=== PATIENT | male | born 1970 | race Caucasian/White ===

== ENCOUNTER 2016-08-14 10:52 | Emergency (ER) | payer OTHER ==
[2016-08-14 10:57] VITALS: BP 150/106; TEMP 97.6; BMI 34.9
--- NOTE | 2016-08-14 11:56 | ED.PDOC ---
General ED Provider: Dr. ALBERT NELSON Chief Complaint: Extremity Pain/Injury Stated Complaint: left shoulder pain Time Seen by Physician: 11:00 Mode of Arrival: Walk-In Information Source: Patient Exam Limitations: No limitations Primary Care Provider: SAIMA RAYGOZA Nursing and Triage Documentation Reviewed and Agree: Yes Musculoskeletal Complaint Exam - Shoulder Pain Complaint/Exam Mechanism of Injury: Reports: No known trauma Onset/Duration: chronic Symptoms Are: Still present Timing: Constant Initial Severity: Moderate Current Severity: Moderate Character: Reports: Throbbing, Spasmodic, Stiffness Alleviating: Reports: None Aggravating: Reports: Movement, Lifting, Flexion, Extension, Internal rotation, External rotation, Abduction Associated Signs and Symptoms: Denies: Swelling, Redness, Bruising, Fever, Weakness, Numbness, Tingling Related History: Reports: Similar episode Non-Orthopedic Risk Factors: Reports: None DVT Risk Factors: Reports: None Septic Arthritis Risk Factors: Reports: None Related Surgical History: Reports: None Limited Range of Motion: Present: Abduction, Adduction, Flexion, Extension, Internal rotation, External rotation, Rotator cuff muscles, Rotator cuff insertion Differential Diagnoses: Rotator Cuff Injury Review of Systems - Review Of Systems Constitutional: Reports: No symptoms Eyes: Reports: No symptoms Ears, Nose, Mouth, Throat: Reports: No symptoms Respiratory: Reports: No symptoms Cardiac: Reports: No symptoms GI: Reports: No symptoms : Reports: No symptoms Musculoskeletal: Reports: Joint pain (left shoulder ) Skin: Reports: No symptoms Neurological: Reports: No symptoms Endocrine: Reports: No symptoms Hematologic/Lymphatic: Reports: No symptoms All Other Systems: Reviewed and Negative Past Medical History - Past Medical History Previously Healthy: Yes Endocrine: Reports: None Cardiovascular: Reports: None Respiratory: Reports: None Hematological: Reports: None Gastrointestinal: Reports: None Genitourinary: Reports: None Neuro/Psych: Reports: None Musculoskeletal: Reports: None Cancer: Reports: None - Surgical History General Surgical History: Reports: Unknown - Family History Family History: Reports: Unknown - Social History Smoking Status: Current every day smoker Hx Substance Use: No Alcohol Screening: None Physical Exam - Physical Exam Appearance: Well-appearing, No pain distress, Well-nourished Eyes: CATHY, EOMI, Conjunctiva clear ENT: Ears normal, Nose normal, Oropharynx normal Respiratory: Airway patent, Breath sounds clear, Breath sounds equal, Respirations nonlabored Cardiovascular: RRR, Pulses normal, No rub, No murmur GI/: Soft, Nontender, No masses, Bowel sounds normal, No Organomegaly Musculoskeletal: Limited ROM Skin: Warm, Dry, Normal color Neurological: Sensation intact, Motor intact, Reflexes intact, Cranial nerves intact, Alert, Oriented Psychiatric: Affect appropriate, Mood appropriate Critical Care Note - Critical Care Note Total Time (mins): 0 Course - Course Orders, Labs, Meds: Orders Category Date Time Status SHOULDER, LEFT MIN 2V Stat RADS 08/14/16 11:51 Ordered Vital Signs: Temp Pulse Resp BP Pulse Ox 08/14/16 10:53 97.6 F 84 20 150/106 H 95 Departure - Departure Time of Disposition: 13:00 Disposition: HOME SELF-CARE Discharge Problem: Rotator cuff arthropathy Qualifiers: Laterality: left Qualifier Code: (M12.812) Other specific arthropathies, not elsewhere classified, left shoulder Instructions: Rotator Cuff Injury (ED) Condition: Good Pt referred to PMD for follow-up: No Additional Instructions: Please call your Family Physician as soon as possible to schedule a follow-up appointment.MUST SEE YOUR MD FOR MRI OF SHOULDER Allergies/Adverse Reactions: Allergies No Known Allergies Allergy (Unverified 08/14/16 10:56) Home Medications: Ambulatory Orders Etanercept [Enbrel] 25 mg SQ WEEKLY 08/14/16 Folic Acid 1 mg PO DAILY 08/14/16 Lisinopril/Hydrochlorothiazide [Zestoretic 20-12.5 mg Tablet] 1 each PO DAILY Methotrexate Sodium [Methotrexate] 3 tab PO WEEKLY 08/14/16
--- NOTE | 2016-08-14 12:30 | DI ---
EXAM: LEFT SHOULDER HISTORY: Shoulder pain FINDINGS: Left shoulder three-view. Normal bone density. No fracture or dislocation is identified. Glenohumeral joint appears normal. There is mild acromioclavicular joint osteoarthritis. IMPRESSION: Mild acromioclavicular joint osteoarthritis.
== END 2016-08-14 13:21 | disposition home or self-care (01) ==
LOC: ED 10:52
DX: M12.812 Other specific arthropathies, not elsewhere classified, left shoulder (principal); F17.210 Nicotine dependence, cigarettes, uncomplicated
CPT/HCPCS: 99283

== ENCOUNTER 2016-10-04 16:11 | Outpatient (CLI) | payer OTHER ==
[2016-10-04 16:28] LABS: BASOPHILS % (AUTO) 0.5 % (0.0-3.0); EOSINOPHILS # (AUTO) 0.2 K/ul (0.0-0.7); EOSINOPHILS % (AUTO) 3.1 % (0.0-7.0); HEMATOCRIT 41.5 % (42.0-52.0); IMMATURE GRANULOCYTE % (AUTO) 0.1 % (0.0-5.0); LYMPHOCYTES # (AUTO) 2.1 K/uL (0.60-3.4); LYMPHOCYTES % (AUTO) 28.8 (10.0-50.0); MEAN CORPUSCULAR HEMOGLOBIN 27.3 pg (27.0-31.0); MEAN CORPUSCULAR HGB CONC 33.7 (31.8-35.4); MEAN CORPUSCULAR VOLUME 81.1 fl (80.0-94.0); MONOCYTES # (AUTO) 0.6 K/uL (0.4-2.0); MONOCYTES % (AUTO) 7.5 (0-10); NEUTROPHILS # (AUTO) 4.4 K/ul (2.0-6.9); PLATELET COUNT 250 10^3/uL (140-440); RED BLOOD COUNT 5.12 10^6/ul (4.70-6.10); WHITE BLOOD COUNT 7.37 K/ul (4.2-10.2)
[2016-10-04 17:06] LABS: ALBUMIN 3.9 g/dL (3.4-5.0); ALBUMIN/GLOBULIN RATIO 1.22; ANION GAP 12.6; BILIRUBIN,TOTAL 0.32 mg/dL (0.00-1.20); BUN/CREATININE RATIO 15.05; CALCIUM 9.5 mg/dL (8.2-10.2); CHOL/HDL RATIO 4.6 (4.5-6.4); CREATININE 0.93 mg/dL (0.60-1.10); POTASSIUM 3.6 mmol/L (3.5-5.1); TOTAL PROTEIN 7.1 g/dL (6.4-8.2)
== END 2016-10-04 16:12 | disposition home or self-care (01) ==
LOC: LAB 16:11
PROVIDERS: ATTEND Internal Medicine
DX: I10 Essential (primary) hypertension (principal); J44.9 Chronic obstructive pulmonary disease, unspecified; E78.5 Hyperlipidemia, unspecified; M06.9 Rheumatoid arthritis, unspecified
CPT/HCPCS: 36415; 80053; 80061; 83036; 84443; 85025

== ENCOUNTER 2017-02-16 09:24 | Outpatient (CLI) ==
[2017-02-16 09:54] LABS: BASOPHILS % (AUTO) 0.3 % (0.0-3.0); EOSINOPHILS # (AUTO) 0.2 K/ul (0.0-0.7); EOSINOPHILS % (AUTO) 3.1 % (0.0-7.0); HEMATOCRIT 42.9 % (42.0-52.0); HEMOGLOBIN 14.4 g/dl (14.0-18.0); IMMATURE GRANULOCYTE % (AUTO) 0.3 % (0.0-5.0); LYMPHOCYTES # (AUTO) 2.1 K/uL (0.60-3.4); MEAN CORPUSCULAR HEMOGLOBIN 27.2 pg (27.0-31.0); MEAN CORPUSCULAR HGB CONC 33.6 (31.8-35.4); MEAN CORPUSCULAR VOLUME 80.9 fl (80.0-94.0); MONOCYTES # (AUTO) 0.7 K/uL (0.4-2.0); MONOCYTES % (AUTO) 9.2 (0-10); NEUTROPHILS # (AUTO) 4.7 K/ul (2.0-6.9); NEUTROPHILS % (AUTO) 60.1; PLATELET COUNT 241 10^3/uL (140-440); WHITE BLOOD COUNT 7.74 K/ul (4.2-10.2)
[2017-02-16 10:32] LABS: ALBUMIN 3.9 g/dL (3.4-5.0); ALBUMIN/GLOBULIN RATIO 1.05; ANION GAP 14.9; BILIRUBIN,TOTAL 0.41 mg/dL (0.00-1.20); BUN/CREATININE RATIO 20.73; CHOL/HDL RATIO 5.3 (4.5-6.4); CREATININE 0.82 mg/dL (0.60-1.10); POTASSIUM 3.9 mmol/L (3.5-5.1); TOTAL PROTEIN 7.6 g/dL (6.4-8.2)
== END 2017-02-16 09:25 | disposition home or self-care (01) ==
LOC: LAB 09:24
PROVIDERS: ATTEND Internal Medicine
DX: I10 Essential (primary) hypertension (principal); I51.7 Cardiomegaly; J44.9 Chronic obstructive pulmonary disease, unspecified; N52.9 Male erectile dysfunction, unspecified; E29.1 Testicular hypofunction; G47.00 Insomnia, unspecified; Z79.899 Other long term (current) drug therapy; Z12.5 Encounter for screening for malignant neoplasm of prostate
CPT/HCPCS: 36415; 80053; 80061; 83036; 84443; 85025

== ENCOUNTER 2017-09-24 12:33 | Outpatient (CLI) ==
--- NOTE | 2017-09-24 14:36 | DI ---
EXAM: Two views of the chest. History: Short of breath and cough. Findings: Low lung volumes accentuate heart size but appears enlarged. Bronchial wall thickening. N o consolidated pneumonia. No pleural fluid and no pneumothorax. No acute osseous abnormalities. Impression: 1. Cardiomegaly with no evidence for pulmonary edema. 2. Bronchial wall thickening
== END 2017-09-24 12:34 | disposition home or self-care (01) ==
LOC: RAD 12:33
PROVIDERS: ATTEND Internal Medicine
DX: R06.02 Shortness of breath (principal); R05 Cough

== ENCOUNTER 2017-09-26 09:31 | Observation (INO) ==
[2017-09-26] MEDS ORDERED: VISTARIL INJ IM PRN (09:47)
[2017-09-26] MEDS ORDERED: TYLENOL PO PRN (09:47)
[2017-09-26] MEDS ORDERED: NITROSTAT SL PRN (09:47)
[2017-09-26] MEDS ORDERED: ATROPINE SULFATE PFS IVP PRN (09:47)
[2017-09-26] MEDS ORDERED: MORPHINE 4 MG/ML VIAL IVP PRN (09:47)
[2017-09-26 10:20] VITALS: BMI 35.0
[2017-09-26] MEDS: COZAAR PO SCH (10:31)
[2017-09-26] MEDS: HYDROCHLOROTHIAZIDE PO SCH (10:32)
[2017-09-26] MEDS: COREG PO SCH ×2 (10:32→17:26)
[2017-09-26] MEDS: FOLIC ACID PO SCH (10:32)
[2017-09-26] MEDS: ZITHROMAX PO SCH (10:32)
[2017-09-26] MEDS: DEXTROSE 5%-1/2NS IV SOLUTION 1,000 ML IV SCH ×2 (10:42→22:33)
[2017-09-26] MEDS: ROCEPHIN 1 GM in SODIUM CHLORIDE 50 ML IV SCH (10:42)
[2017-09-26] MEDS: TORADOL IVP SCH ×3 (10:49→21:35)
[2017-09-26] MEDS: SOLU-CORTEF 250 MG IVP SCH ×3 (10:49→21:35)
[2017-09-26] MEDS: TUSSIONEX PO SCH ×2 (10:49→21:34)
[2017-09-26] MEDS: XOPENEX 1.25 MG NEB SCH ×3 (11:08→23:00)
--- NOTE | 2017-09-26 11:34 | DI ---
EXAM: PA and lateral views of the chest HISTORY: Cough with chest pain COMPARISON: Chest x-ray 09/24/2017 FINDINGS: The cardiomediastinal silhouette is unchanged and mildly enlarged. There is no pneumothor ax or pleural effusion. There is no consolidation, nodule or mass. There is unchanged questionable central airway thickening. The osseous structures are unremarkable. IMPRESSION: 1. Central airway thickening may represent reactive airways changes versus bronchitis. 2. Unchanged enlarged cardiomediastinal silhouette.
[2017-09-26] MEDS: NICODERM 21 MG TD SCH (16:56)
[2017-09-26] MEDS ORDERED: DESYREL PO SCH (21:00)
[2017-09-27] MEDS: TORADOL IVP SCH ×3 (05:25→21:03)
[2017-09-27] MEDS: SOLU-CORTEF 250 MG IVP SCH ×3 (05:26→21:03)
[2017-09-27] MEDS: XOPENEX 1.25 MG NEB SCH ×4 (05:49→22:46)
[2017-09-27] MEDS ORDERED: DESYREL PO SCH (08:15)
[2017-09-27] MEDS: COZAAR PO SCH (08:42)
[2017-09-27] MEDS: COREG PO SCH ×2 (08:42→16:57)
[2017-09-27] MEDS: HYDROCHLOROTHIAZIDE PO SCH (08:42)
[2017-09-27] MEDS: ZITHROMAX PO SCH (08:43)
[2017-09-27] MEDS: FOLIC ACID PO SCH (08:43)
[2017-09-27] MEDS: XANAX PO PRN (08:43)
[2017-09-27] MEDS: ROCEPHIN 1 GM in SODIUM CHLORIDE 50 ML IV SCH (08:44)
[2017-09-27] MEDS: TUSSIONEX PO SCH ×2 (08:44→21:03)
[2017-09-27] MEDS: NICODERM 21 MG TD SCH (08:44)
--- NOTE | 2017-09-27 09:43 | PCM.PROG ---
Attending Provider: ATTENDING PROVIDER: Dr. SAIMA RAYGOZA This patient is seen with Angelica Serna, Nurse Practitioner. DATE OF SERVICE: 09/27/17 SUBJECTIVE: This 47 year old WHITE/ M was hospitalized 09/26/17. The patient is lying in bed alert. He states he feels anxious. He has a good appetite. He did not sleep very well. He is still coughing, had fever yesterday. REVIEW OF SYSTEMS: CONSTITUTIONAL: No night sweats. No fatigue, malaise, lethargy. No fever or chills. HEENT: Eyes: No visual changes. No eye pain. No eye discharge. ENT: No runny nose. No epistaxis. No sinus pain. No odynophagia. No congestion. RESPIRATORY: Cough. No congestion. No hemoptysis. No shortness of breath. CARDIOVASCULAR: No angina symptoms. No CHF symptoms. No atypical chest pain for CAD. No palpitations. No orthopnea.. GASTROINTESTINAL: No abdominal pain. No nausea or vomiting. No diarrhea or constipation. No hematemesis. No hematochezia. GENITOURINARY: No urgency. No frequency. No dysuria. No hematuria. No obstructive symptoms. No discharge. No pain. No significant abnormal bleeding. MUSCULOSKELETAL: No musculoskeletal pain; no joint swelling. NEUROLOGICAL: Awake, alert, oriented to time, place and person. No headache. No neck pain. No syncope. No seizures. No dizziness. PSYCHIATRIC: Not anxious. No depression. No suicidal thoughts. No homicidal thoughts. SKIN: No rash. No lesions. No wounds. ENDOCRINE: No unexplained weight loss. No weight gain. HEMATOLOGIC/LYMPHATIC: No anemia. No purpura. No petechiae. No prolonged or excessive bleeding. No palpable lymph nodes. PHYSICAL EXAMINATION: GENERAL: The patient is awake, alert and oriented, sitting in bed in no distress. VITAL SIGNS: Temperature 98.5 F, Pulse 52, Respiratory Rate 16, BP 136/82, Pulse Ox 97% HEENT: Head normocephalic, atraumatic. Eyes: Extraocular muscles are intact. Pupils are equal, round and reactive to light and accommodation. Ears: No lesions. Nose appeared normal. Throat: No exudate or erythema. NECK: Supple. No JVD, no carotid bruit. No lymphadenopathy or thyromegaly. LUNGS: Rhonchi on the right with diminished breath sounds. Percussion note normal. Chest symmetrical. HEART: S1, S2, no S3. No murmurs. No cyanosis or clubbing. No ascites. Pulses: Dorsalis pedis and posterior tibial pulses +1 to +2 both sides. ABDOMEN: Soft. Non-tender. Bowel sounds active. No CVA tenderness. No mass felt. EXTREMITIES: No edema. Full range of motion of all extremities, equal. NEUROLOGIC: No focal deficit. Cranial nerves II through XII are grossly intact. No headache, no double vision or headache. SKIN: Not dry. Intact. Turgor-normal. LYMPHATIC: No palpable lymph nodes/no lymphedema. MUSCULOSKELETAL: Normal joints with no swelling. Muscle tone is normal. LAB REVIEW: 09/27/17 04:30 09/27/17 04:30 09/27/17 04:30: Sodium 138, Potassium 4.3, Chloride 105, Carbon Dioxide 23, Anion Gap 14.3, BUN 16, Creatinine 0.83, Estimated GFR (MDRD) 99.00, BUN/ Creatinine Ratio 19.27, Glucose 131 H, Calcium 9.1, Total Bilirubin 0.5, AST 22 , ALT 44, Alkaline Phosphatase 62, Total Protein 6.4, Albumin 3.3 L, Globulin 3.1, Albumin/Globulin Ratio 1.06 09/27/17 04:30: WBC 10.70 H, RBC 4.81, Hgb 13.4 L, Hct 40.5 L, MCV 84.2, MCH 27.9, MCHC 33.1, RDW Coeff of Martha 15.0 H, Plt Count 237, Immature Gran % (Auto) 0.3, Neut % (Auto) 78.1, Lymph % (Auto) 16.3, [place] % (Auto) 5.2, Eos % (Auto) 0.0, Baso % (Auto) 0.1, Immature Gran # (Auto) 0.0, Neut # (Auto) 8.4 H, Lymph # (Auto) 1.7, [place] # (Auto) 0.6, Eos # (Auto) 0.0, Baso # (Auto) 0.0 09/26/17 17:48: Total Creatine Kinase 81, Troponin I 0.0160 09/26/17 17:00: Urine Color Yellow, Urine Clarity Clear, Urine pH 5.5, Ur Specific Brea 1.025, Urine Protein Negative, Urine Glucose (UA) Negative, Urine Ketones Negative, Urine Blood Negative, Urine Nitrite Negative, Urine Bilirubin Negative, Urine Urobilinogen 0.2, Ur Leukocyte Esterase Negative 09/26/17 10:30: Influ A Molecular Assay Negative by naat, Influ B Molecular Assay Negative by naat 09/26/17 10:25: Sodium 138, Potassium 3.5, Chloride 103, Carbon Dioxide 24, Anion Gap 14.5, BUN 14, Creatinine 0.82, Estimated GFR (MDRD) 101.00, BUN/ Creatinine Ratio 17.07, Glucose 89, Calcium 9.3, Total Bilirubin 0.5, AST 16, ALT 32, Alkaline Phosphatase 71, Total Creatine Kinase 95, Troponin I < 0.0100, Total Protein 7.0, Albumin 3.7, Globulin 3.3, Albumin/Globulin Ratio 1.12, TSH 6.808 H, Free T4 0.79 09/26/17 10:25: WBC 13.67 H, RBC 5.13, Hgb 14.6, Hct 43.1, MCV 84.0, MCH 28.5, MCHC 33.9, RDW Coeff of Martha 14.9 H, Plt Count 258, Immature Gran % (Auto) 0.3, Neut % (Auto) 68.7, Lymph % (Auto) 22.9, [place] % (Auto) 7.5, Eos % (Auto) 0.5, Baso % (Auto) 0.1, Immature Gran # (Auto) 0.0, Neut # (Auto) 9.4 H, Lymph # ( Auto) 3.1, [place] # (Auto) 1.0, Eos # (Auto) 0.1, Baso # (Auto) 0.0 09/26/17 09:47: Puncture Site Rbrach, O2 Saturation 95.0, ABG pH 7.451 H, ABG pCO2 40.9, ABG pO2 74.0 L, ABG HCO3 28.5 H, ABG Total CO2 30 H, ABG Base Excess 5 H, FiO2 % 21.0 ASSESSMENT: 1. Acute bronchitis 2. Flu symptoms 3. Anxiety PLAN: 1. Echocardiogram 2. Trazodone 100 mg at night 3. Xanax 0.25 mg daily p.r.n. Plan and coordination of the patient's care discussed in the presence of Staff Rn and nurse. CONDITION: Stable SCRIBED BY: SARAH TAYLOR Academic Computing Director scribed while in presence of service performed by Dr. Raygoza/Angelica Serna APRN on 09/27/17 (0800)
[2017-09-27] MEDS: DEXTROSE 5%-1/2NS IV SOLUTION 1,000 ML IV SCH ×2 (11:06→23:18)
[2017-09-28] MEDS: XOPENEX 1.25 MG NEB SCH ×2 (04:38→11:13)
[2017-09-28] MEDS: TORADOL IVP SCH ×2 (05:09→13:25)
[2017-09-28] MEDS: SOLU-CORTEF 250 MG IVP SCH ×2 (05:09→13:24)
[2017-09-28] MEDS ORDERED: SYNTHROID PO SCH (09:00)
[2017-09-28] MEDS: ROCEPHIN 1 GM in SODIUM CHLORIDE 50 ML IV SCH (09:04)
[2017-09-28] MEDS: COREG PO SCH (09:05)
[2017-09-28] MEDS: COZAAR PO SCH (09:05)
[2017-09-28] MEDS: ZITHROMAX PO SCH (09:05)
[2017-09-28] MEDS: XANAX PO PRN (09:05)
[2017-09-28] MEDS: FOLIC ACID PO SCH (09:05)
[2017-09-28] MEDS: HYDROCHLOROTHIAZIDE PO SCH (09:06)
[2017-09-28] MEDS: TUSSIONEX PO SCH (09:12)
[2017-09-28] MEDS: NICODERM 21 MG TD SCH (09:12)
--- NOTE | 2017-09-28 11:13 | HP ---
DATE OF SERVICE: 09/26/17 REASON FOR HOSPITALIZATION/HISTORY OF PRESENT ILLNESS: Treated for acute bronchitis/Flu syndrome 09/24/17. No improvement. Still fever/ chills, no nausea. No symptoms of CHF/CAD. Fatigue/tired/Dizziness. Appetite not good. PAST MEDICAL HISTORY: Hypertension Arthritis PAST SURGICAL HISTORY: Bilateral knee Lymph nodes (groin) REVIEW OF SYSTEMS: CONSTITUTIONAL: Fever, Fatigue. HEENT: No sinus drainage, no sore throat. RESPIRATORY: Cough: Dry, no congestion. CARDIOVASCULAR: Atypical chest pain for coronary artery disease right sided with cough. No angina, CHF symptoms, palpitations. Shortness of breath. GASTROINTESTINAL: No melena or abdominal pain. No GERD. GENITOURINARY: No hematuria, no prostatism, no polyuria. COOKER SODA: No blackout, Dizziness, no headache, no double vision. MUSCULOSKELETAL: Osteoarthritis pain, no joint swelling. ENDOCRINE: No weight loss, no weight gain. SKIN: Not dry, no rash. PSYCHIATRIC: Anxious, no depression, no suicidal thoughts, no homicidal thoughts. SOCIAL HISTORY: Marital Status: . Alcohol Usage: No. Tobacco Usage: Yes. FAMILY HISTORY: Father Alzheimer Mother cancer Brother 0 Sister 2 MEDICATIONS: Methotrexate 3 a week Embrel Folic acid Trazodone 50mg HS Cialis 5mg daily Hyzaar 100-12.5mg daily Keflex 500 three times a day 10 days-on hold Prednisone 20mg twice a day for 5 days- on hold Phenergan with codeine- on hold ALLERGIES: No known allergies PHYSICAL EXAMINATION: V/S: Pulse 83, blood pressure 168/118, temperature 99.7, Oxygen saturation 98%. GENERAL APPEARANCE: Oriented times three. HEENT: Normal. NECK: No JVP, no bruits. RESPIRATORY: Lungs are clear with decreased breath sounds. CARDIOVASCULAR: S1, S2, no S3, no murmurs. No cyanosis, clubbing. No ascites. GI/ABDOMEN: No tenderness. Bowel sounds are active. EXTREMITIES: edema, pulses +1, equal. COOKER SODA: Deep tendon reflexes, sensory, motor and gait all normal. RECTAL/PELVIC/PROSTATE: 02/05(0.4). SKIN: Dry. ASSESSMENT: 1. Flu syndrome 2. Acute bronchitis 3. Dehydration 4. Hypertension (severe) Urgency 5. Pleuritic chest pain (Rt sided) 6. Hypertension/LVH 7. Rheumatoid arthritis, Dr. Rajan 8. Smoking/COPD 9. Left hip replacement- Dr. Quinn 10.ED 11.Prostatism 12.Hypogonadism 13.Insomnia 14.Umbilical hernia 15.Acute bronchitis PLAN: 1. Admit 2. Routine Telemetry orders 3. Toradol 30mg IV now and Q 8 hours 4. Diet regular 5. Telemetry x 48 hours 6. Rapid Flu A and B 7. Solu-Cortef 125mg IV now and 8 hours 8. Rocephin 1 gram IV 24 hours 9. Zithromax 500mg PO daily x3 day 10.1000cc D5 1/2 normal saline 12 hours 11.Daily CBC and CMP 12.ABG 13.Xopenex (NEBS) Q 6 hours 14.Losartan 100-12.5 PO daily 15.Sputum for culture and sensitivity 16.Blood culture x 2 17.T4 TSH 18.Tussionex one teaspoon PO twice a day daily. 19.Coreg 6.25mg PO twice a day TIME SPENT: More than 70 minutes. MTDD
--- NOTE | 2017-09-28 11:20 | PCM.PROG ---
Attending Provider: ATTENDING PROVIDER: Dr. SAIMA RAYGOZA This patient is seen with Angelica Serna, Nurse Practitioner. DATE OF SERVICE: 09/28/17 SUBJECTIVE: This 47 year old WHITE/ M was hospitalized 09/26/17. The patient is sitting on the side of bed, alert. He states he is ready to go home. He is encouraged to be up and about. Cough improved. No fever. REVIEW OF SYSTEMS: CONSTITUTIONAL: No night sweats. No fatigue, malaise, lethargy. No fever or chills. HEENT: Eyes: No visual changes. No eye pain. No eye discharge. ENT: No runny nose. No epistaxis. No sinus pain. No odynophagia. No congestion. RESPIRATORY: Cough and congestion. No hemoptysis. No shortness of breath. CARDIOVASCULAR: No angina symptoms. No CHF symptoms. No atypical chest pain for CAD. No palpitations. No orthopnea.. GASTROINTESTINAL: No abdominal pain. No nausea or vomiting. No diarrhea or constipation. No hematemesis. No hematochezia. GENITOURINARY: No urgency. No frequency. No dysuria. No hematuria. No obstructive symptoms. No discharge. No pain. No significant abnormal bleeding. MUSCULOSKELETAL: No musculoskeletal pain; no joint swelling. NEUROLOGICAL: Awake, alert, oriented to time, place and person. No headache. No neck pain. No syncope. No seizures. No dizziness. PSYCHIATRIC: Not anxious. No depression. No suicidal thoughts. No homicidal thoughts. SKIN: No rash. No lesions. No wounds. ENDOCRINE: No unexplained weight loss. No weight gain. HEMATOLOGIC/LYMPHATIC: No anemia. No purpura. No petechiae. No prolonged or excessive bleeding. No palpable lymph nodes. PHYSICAL EXAMINATION: GENERAL: The patient is awake, alert and oriented, sitting in bed in no distress. VITAL SIGNS: Temperature 98.1 F, Pulse 68, Respiratory Rate 18, BP 158/90, Pulse Ox 98% HEENT: Head normocephalic, atraumatic. Eyes: Extraocular muscles are intact. Pupils are equal, round and reactive to light and accommodation. Ears: No lesions. Nose appeared normal. Throat: No exudate or erythema. NECK: Supple. No JVD, no carotid bruit. No lymphadenopathy or thyromegaly. LUNGS: Diminished breath sounds bilaterally. Clear to auscultation. Percussion note normal. Chest symmetrical. HEART: S1, S2, no S3. No murmurs. No cyanosis or clubbing. No ascites. Pulses: Dorsalis pedis and posterior tibial pulses +1 to +2 both sides. ABDOMEN: Soft. Non-tender. Bowel sounds active. No CVA tenderness. No mass felt. EXTREMITIES: No edema. Full range of motion of all extremities, equal. NEUROLOGIC: No focal deficit. Cranial nerves II through XII are grossly intact. No headache, no double vision or headache. SKIN: Not dry. Intact. Turgor-normal. LYMPHATIC: No palpable lymph nodes/no lymphedema. MUSCULOSKELETAL: Normal joints with no swelling. Muscle tone is normal. LAB REVIEW: 09/28/17 05:35 09/28/17 05:35 09/28/17 05:35: Sodium 139, Potassium 3.7, Chloride 106, Carbon Dioxide 23, Anion Gap 13.7, BUN 16, Creatinine 0.77, Estimated GFR (MDRD) 108.00, BUN/ Creatinine Ratio 20.77, Glucose 116 H, Calcium 9.0, Total Bilirubin 0.4, AST 14 L, ALT 37, Alkaline Phosphatase 62, Total Protein 6.4, Albumin 3.2 L, Globulin 3.2, Albumin/Globulin Ratio 1.00 09/28/17 05:35: WBC 12.90 H, RBC 4.88, Hgb 13.5 L, Hct 40.6 L, MCV 83.2, MCH 27.7, MCHC 33.3, RDW Coeff of Martha 14.6, Plt Count 256, Immature Gran % (Auto) 0.5, Neut % (Auto) 71.7, Lymph % (Auto) 18.4, [place] % (Auto) 9.2, Eos % (Auto) 0.1, Baso % (Auto) 0.1, Immature Gran # (Auto) 0.1, Neut # (Auto) 9.2 H, Lymph # (Auto) 2.4, [place] # (Auto) 1.2, Eos # (Auto) 0.0, Baso # (Auto) 0.0 ASSESSMENT: 1. Acute bronchitis 2. Flu symptoms 3. Anxiety 4. Smoker 5. Cardiomegaly per chest x-ray 6. Hypothyroidism PLAN: 1. D/C home 2. Echocardiogram today 3. ProAir Hfa three to four times a day 4. Rest at home 5. Finish Keflex 6. Prednisone 20 mg b.i.d. times 5 days, then daily for 5 days 7. Tussionex one tsp b.i.d. 8. Synthroid 50 mg daily Plan and coordination of the patient's care discussed in the presence of Independent Driver and nurse. EDUCATION: Information provided regarding blood pressure control, diet, exercise and smoking cessation. CONDITION: STABLE SCRIBED BY: Vega BAPTISTE scribed while in presence of service performed by Dr. Raygoza/Angelica Serna APRN on 09/28/17 (9900)
[2017-09-28 13:53] VITALS: BP 134/85; TEMP 98.3
--- NOTE | 2017-09-28 14:59 | CM.DICTOOL ---
ADMISSION: 09/26/17 09:31 FINAL DIAGNOSIS ACUTE BRONCHITIS PNEUMONITIS FLU-LIKE SYMPTOMS DEHYDRATION HYPERTENSION CARDIOMEGALY BY CXR, 09/26/17 HYPOTHYROIDISM (TSH 6.808, 09/26/17) DYSLIPIDEMIA UMBILICAL HERNIA ED LEFT SHOULDER OSTEOARTHRITIS DEPRESSION/ANXIETY LEFT HIP ARTHROPLASTY LEFT KNEE ARTHROPLASTY EVERYDAY SMOKER LAST VITALS Temp Pulse Resp BP Pulse Ox 98 F 65 18 144/86 H 95 09/28/17 10:00 09/28/17 10:00 09/28/17 10:00 09/28/17 10:00 09/28/17 10:00 ACTIVE HOME MEDICATIONS Etanercept (Enbrel) 25 mg SQ WEEKLY Folic Acid (Folic Acid) 1 mg PO DAILY [facility] Last Admin: 09/28/17 09:05 Dose: 1 mg Losartan Potassium (Hyzaar)/Hydrochlorothiazide 100-12.5 mg PO DAILY [facility] Last Admin: 09/28/17 09:05 Dose: 100-12.5 mg Methotrexate Sodium 3 tabs PO WEEKLY Trazodone HCl (Desyrel) 50 mg PO BEDTIME [facility] Last Admin: 09/27/17 21:03 Dose: 100 mg ALLERGIES No Known Allergies Allergy (Unverified 08/14/16 10:56) NEW PRESCRIPTIONS: CONTINUE THE PRESCRIPTION MEDICATIONS PROVIDED TO YOU JUST PRIOR TO THIS HOSPITALIZATION: *PHENERGAN WITH CODEINE 5-10 ML, TAKE 5-10 ML BY MOUTH EVERY 6 HOURS NEEDED FOR COUGHING *KEFLEX 500 MG, TAKE ONE TABLET BY MOUTH THREE TIMES DAILY UNTIL PRESCRIPTION IS COMPLETED *PREDNISONE 20 MG, TAKE ONE TABLET BY MOUTH TWICE DAILY WITH FOOD FOR 5 DAYS, THEN ONE TABLET BY MOUTH DAILY WITH FOOD FOR 5 DAYS, THEN STOP NEW MEDICATIONS *PROAIR INHALER, TAKE 2 PUFFS FOUR TIMES DAILY *SYNTHROID 50 MCG, TAKE ONE TABLET BY MOUTH ON AN EMPTY STOMACH BEFORE BREAKFAST DAILY *COREG (CARVEDILOL) 6.25 MG, TAKE ONE TABLET BY MOUTH TWICE DAILY WITH MEALS *NICOTINE PATCH STEP ONE WEEKS 1-4 (21 MG PATCH) STEP TWO WEEKS 5-6 (14 MG PATCH) STEP THREE WEEKS 7-8 (7 MG PATCH) APPLY ONE PATCH ON CLEAN DRY SKIN TOPICALLY EVERY 24 HOURS. USE A DIFFERENT SITE DAILY. HOLD THE PATCH IN PLACE FOR 8-10 SECONDS. WASH YOUR HANDS FOLLOWING APPLICATION AND REMOVAL OF THE PATCHES. DISPOSE OF USED PATCHES IN A SAFE PLACE. DO NOT USE NICOTINE PATCHES LONGER THAN 8 WEEKS. SMOKING: CURRENT EVERYDAY SMOKER THE PATIENT HAS RECEIVED INFORMATION/TEACHING REGARDING SMOKING CESSATION AND ADDED RISKS TO HIS CARDIOVASCULAR/CARDIOPULMONARY HEALTH WITH NONCOMPLIANCE. HE HAS VERBALIZED HIS INTENT TO STOP SMOKING AND HAS BEEN USING THE NICOTINE PATCH DURING THIS STAY. HE IS AGREEABLE TO COMPLY WITH THREE STEP NICOTINE PATCH USE TO AIDE IN COMPLETE SMOKING CESSATION DURING AN 8 WEEK PERIOD. WE WILL OFFER ENCOURAGEMENT AND MONITORING OF HIS PROGRESS DURING OFFICE VISITS. DISEASE SPECIFIC EDUCATION: PNEUMONITIS DEHYDRATION BRONCHITIS HYPERTENSION HOME MEDICATIONS NEW PRESCRIPTIONS FOLLOW UP DIET, EXERCISE LAB REVIEW: 09/28/17 05:35 09/28/17 05:35 09/28/17 05:35: Sodium 139, Potassium 3.7, Chloride 106, Carbon Dioxide 23, Anion Gap 13.7, BUN 16, Creatinine 0.77, Estimated GFR (MDRD) 108.00, BUN/ Creatinine Ratio 20.77, Glucose 116 H, Calcium 9.0, Total Bilirubin 0.4, AST 14 L, ALT 37, Alkaline Phosphatase 62, Total Protein 6.4, Albumin 3.2 L, Globulin 3.2, Albumin/Globulin Ratio 1.00 09/28/17 05:35: WBC 12.90 H, RBC 4.88, Hgb 13.5 L, Hct 40.6 L, MCV 83.2, MCH 27.7, MCHC 33.3, RDW Coeff of Martha 14.6, Plt Count 256, Immature Gran % (Auto) 0.5, Neut % (Auto) 71.7, Lymph % (Auto) 18.4, [place] % (Auto) 9.2, Eos % (Auto) 0.1, Baso % (Auto) 0.1, Immature Gran # (Auto) 0.1, Neut # (Auto) 9.2 H, Lymph # (Auto) 2.4, [place] # (Auto) 1.2, Eos # (Auto) 0.0, Baso # (Auto) 0.0 PLAN: DISCHARGE HOME TODAY RETURN TO SEE DR. RAYGOZA IN HIS OFFICE ON 10/05/17 AT 1 P.M. RESUME YOUR HOME MEDICATIONS PER LIST PROVIDED BY THE NURSING STAFF CONTINUE THE PRESCRIPTION MEDICATIONS PROVIDED TO YOU JUST PRIOR TO THIS HOSPITALIZATION: *PHENERGAN WITH CODEINE 5-10 ML, TAKE 5-10 ML BY MOUTH EVERY 6 HOURS NEEDED FOR COUGHING *KEFLEX 500 MG, TAKE ONE TABLET BY MOUTH THREE TIMES DAILY UNTIL PRESCRIPTION IS COMPLETED *PREDNISONE 20 MG, TAKE ONE TABLET BY MOUTH TWICE DAILY WITH FOOD FOR 5 DAYS, THEN ONE TABLET BY MOUTH DAILY WITH FOOD FOR 5 DAYS, THEN STOP NEW MEDICATIONS *PROAIR INHALER, TAKE 2 PUFFS FOUR TIMES DAILY *SYNTHROID 50 MCG, TAKE ONE TABLET BY MOUTH ON AN EMPTY STOMACH BEFORE BREAKFAST DAILY *COREG (CARVEDILOL) 6.25 MG, TAKE ONE TABLET BY MOUTH TWICE DAILY WITH MEALS *NICOTINE PATCH STEP ONE WEEKS 1-4 (21 MG PATCH) STEP TWO WEEKS 5-6 (14 MG PATCH) STEP THREE WEEKS 7-8 (7 MG PATCH) APPLY ONE PATCH ON CLEAN DRY SKIN TOPICALLY EVERY 24 HOURS. USE A DIFFERENT SITE DAILY. HOLD THE PATCH IN PLACE FOR 8-10 SECONDS. WASH YOUR HANDS FOLLOWING APPLICATION AND REMOVAL OF THE PATCHES. DISPOSE OF USED PATCHES IN A SAFE PLACE. DO NOT USE NICOTINE PATCHES LONGER THAN 8 WEEKS. ACTIVITY GET PLENTY OF REST AT HOME. GRADUALLY INCREASE YOUR ACTIVITY LEVEL ACCORDING TO YOUR TOLERATION STOP SMOKING DIET HEALTHY HEART SUMMARY THE PATIENT IS ALERT AND ORIENTED X3. HE CURRENTLY RESIDES AT HOME WITH HIS SPOUSE AND CHILDREN. HE IS INDEPENDENT WITH ADL'S AND DOES NOT REQUIRE ANY DME , HOME HEALTH OR HOMEMAKING SERVICES. HE WORKS OUTSIDE THE HOME AND IS ABLE TO PROVIDE HIS OWN TRANSPORTATION. HE DESIRES TO RETURN HOME AT DISCHARGE. SKIN TURGOR IS INTACT AND WITHOUT DECUBITUS ULCERS. HYDRATION AND NUTRITIONAL STATUS ARE VERY GOOD. THE PATIENT IS AFEBRILE AND PAIN FREE AT DISCHARGE. HE IS AWARE AND AGREEABLE FOR TODAY'S DISCHARGE PLANS. CURRENT CODE STATUS FULL CODE HALINA JON APRN SAIMA RAYGOZA M.D.
--- NOTE | 2017-10-01 09:43 | ECHO2D ---
Date of Exam: 09/28/17 Ordering Physician: DR. SAIMA RAYGOZA Room #: 119 Reason for Echo: CARDIOMEGALY, COUGH, SOB M-Mode Normal Adult Results LV Dimensions Normal Adult Results AoV Opening excursions >1.6 >1.6 LVEDD-base- 3.5-5.8 5.1 Ao root dimensions 2.0-3.7 3.9 LVESD-base- 3.1-4.6 L. Atrium dimensions 1.9-3.8 4.2 Post. Wall thickness 0.8-1.1 1.3 IV septum (thickness) 0.7-1.2 1.4 Post. Wall excursion 0.72-1.3 NORMAL Septal motion NORMAL Systolic motion R. Ventricular cavity 1.5-2.0 NORMAL LVEF 60% 59% Paradoxical septal wall motion NORMAL 2-D : 2-D M Mode Echocardiogram was performed using apical four chamber and left parasternal long and short axis views. Mitral, tricuspid and aortic valves appear to be normal. Contractility of the left ventricle seems to be normal, so is the cavity size. Enlarged Left atrial cavity. Aortic root appears to be normal. There is no pericardial effusion. There is no thrombus noted in the left ventricular or left aortic cavity. No mitral valve prolapse noted. M-MODE: MV: NORMAL AV: NORMAL TV: NORMAL PV: CHAMBER SIZE: ENLARGED LEFT ATRIAL CAVITY WALL MOTION: NORMAL PERICARDIUM: NORMAL INTERPRETATION: 1. LEFT VENTRICULAR HYPERTROPHY WITH ENLARGED LEFT ATRIAL CAVITY 2. NORMAL LEFT VENTRICULAR CONTRACTILITY 3. NORMAL VALVES MTDD
--- NOTE | 2017-10-02 10:33 | PN ---
DATE OF SERVICE: 09/27/17 SUBJECTIVE: The patient was hospitalized with severe acute bronchitis, severe hypertension and hypertensive urgency. The patient's blood pressure is under control. He is feeling better. PHYSICAL EXAMINATION: HEENT: Head normocephalic, atraumatic. Eyes: Extraocular muscles are intact. Pupils are equal, round and reactive to light and accommodation. Ears: No lesions. Nose appeared normal. Throat: No exudate or erythema. NECK: Supple. No JVD, no carotid bruit. No lymphadenopathy or thyromegaly. LUNGS: Decreased breath sounds with mild wheeze. Percussion note normal. Chest symmetrical. HEART: S1, S2, no S3. No murmurs. No cyanosis or clubbing. No ascites. Pulses: Dorsalis pedis and posterior tibial pulses +1 to +2 both sides. ABDOMEN: Soft. Nontender. Bowel sounds active. No CVA tenderness. No mass felt. EXTREMITIES: No edema. Full range of motion of all extremities, equal. NEUROLOGIC: No focal deficit. Cranial nerves II through XII are grossly intact. No headache, no double vision or headache. SKIN: Not dry. Intact. Turgor - normal. LYMPHATIC: No palpable lymph nodes/no lymphedema. MUSCULOSKELETAL: Normal joints with no swelling. Muscle tone is normal. ASSESSMENT: 1. The patient's bronchitis, pneumonitis, dehydration and hypertension seems to be getting under control. 2. The patient has cardiomegaly with LVH noted on EKG. PLAN: 1. Continue steroids, antibiotics, nebs treatment. 2. Will do echocardiogram to evaluate LV function. 3. The patient is explained about coronary artery disease and the risk factors and how many he has and very likely he has atherosclerosis. Advised further evaluation when he gets well with stress test, etc. He has declined at the present time. TIME SPENT: More than 30 minutes. CONDITION: Stable. Plan and coordination of the patient's care discussed in the presence of nurse. YAMEL
--- NOTE | 2017-10-02 11:31 | PN ---
09/26/17: Level 5 09/27/17: Intermediate 09/28/17: D as in discharge MTDD
--- NOTE | 2017-10-15 11:17 | DS ---
DATE OF SERVICE: 09/28/17 FINAL DIAGNOSIS: 1. ACUTE BRONCHITIS 2. PNEUMONITIS 3. FLU-LIKE SYMPTOMS 4. DEHYDRATION 5. HYPERTENSION 6. CARDIOMEGALY BY CXR, 09/26/17 7. HYPOTHYROIDISM (TSH 6.808, 09/26/17) 8. DYSLIPIDEMIA 9. UMBILICAL HERNIA 10. ERECTILE DYSFUNCTION 11. LEFT SHOULDER OSTEOARTHRITIS 12. DEPRESSION/ANXIETY 13. LEFT HIP ARTHROPLASTY 14. LEFT KNEE ARTHROPLASTY 15. EVERYDAY SMOKER DISCHARGE INSTRUCTIONS: Followup appointment scheduled on 10/05/17 at 1 p.m. in his office. MEDICATIONS AT DISCHARGE: Enbrel 25 mg SQ weekly Folic Acid 1 mg p.o. daily JENNY Hyzaar/Hydrochlorothiazide 100-12.5 mg p.o. daily JENNY Methotrexate Sodium 3 tabs p.o. weekly Desyrel 50 mg p.o. bedtime JENNY CONTINUE THE MEDICATIONS PROVIDED TO YOU JUST PRIOR TO THIS HOSPITALIZATION: Phenergan with Codeine 5-10 mL take 5-10 mL by mouth every 6 hours as needed for coughing Keflex 500 mg take one tablet by mouth three times daily until prescription is completed Prednisone 20 mg take one tablet twice daily with food for 5 days then one tablet by mouth daily with food for 5 days then stop NEW PRESCRIPTIONS: ProAir inhaler take two puffs four times daily Synthroid 50 mcg take one tablet by mouth on an empty stomach before breakfast daily Coreg 6.25 mg take one tablet by mouth twice daily with meals Nicotine patch - Step One weeks 1-4 (21 mg Patch; Step Two weeks 5-6 (14 mg patch) DIET INSTRUCTIONS: Healthy Heart ACTIVITY: Get plenty of rest at home. Gradually increase your activity level according to your toleration SMOKING: Current everyday smoker The patient has received information/teaching regarding cessation and added risks to his cardiovascular/cardiopulmonary health with noncompliance. He has verbalized his intent to stop smoking and has been using the nicotine patch during this stay. He is agreeable to comply with three step nicotine patch use to aide in complete smoking cessation during an 8 week period. We will offer encouragement and monitoring of his progress during office visits. DISEASE SPECIFIC EDUCATION: Pneumonitis Dehydration Bronchitis Hypertension Home medication New prescriptions Followup Diet, exercise HOSPITAL COURSE: This is a 47-year-old male who was seen in the office on Sunday with cough, congestion and low grade fever. He was started on Keflex and Prednisone, presented on Sunday with worsening symptoms. He had higher fever, stated he was weak, short of breath. He was subsequently admitted for flu symptoms and dehydration. Kidney function was slightly elevated. He was placed on Normal Saline at 75 cc/hr along with Rocephin 1 gm IV daily and Zithromax 500 mg p.o. daily for 3 days. Chest x-ray revealed that he did have significant edema and thickening of the bronchials. consistent with bronchitis. Rapid Flu was negative. Over the course of the past 48 hours he has significantly improved. Yesterday, he was still experiencing some wheezing. This morning his breath sounds are diminished but clear and significantly improved. It was found his TSH was slightly elevated at 6.8. This was a new finding for him. We will start him on Synthroid 50 mcg daily. Today, after IV fluids for two days, his kidney function is normal with BUN 16, creatinine 0.77, white count 12.9, hemoglobin 13.5, hematocrit 40.6, platelets 256, sodium 139, potassium 3.7. He will finish his third and final dose of Zithromax today. He has been on Solu-Cortef 125 mg IV q.8hr along with Xopenex neb treatments q.6hr and Tussionex as needed for the cough. We will send him home with ProAir inhaler that he is to use three times a day scheduled and he can wean himself off as his cough starts to improve. He is to resume the Keflex that he had previously 500 mg p.o. t.i.d. for the next 7 days and then we will give him a Prednisone 20 mg b.i.d. for 5 days then 20 mg daily for 5 days for a total of 10 days. Information has been provided to him regarding smoking cessation. He has been on a nicotine patch here and has not smoked however he shows no interest in stopping smoking. Dr. Quinn did perform an echo today prior to discharge as chest x-ray revealed cardiomegaly. He also has a history of hypertension. We will follow up with him in the office next week. TIME SPENT: More than 60 minutes. YAMEL
== END 2017-09-28 16:00 | disposition home or self-care (01) ==
LOC: MEDSURG B 09:31 → INTOOBSV 09:31
PROVIDERS: ADMIT Internal Medicine; ATTEND Internal Medicine
DX: J20.9 Acute bronchitis, unspecified (principal); J18.9 Pneumonia, unspecified organism; R09.89 Other specified symptoms and signs involving the circulatory and respiratory systems; R50.9 Fever, unspecified; E86.0 Dehydration; I16.0 Hypertensive urgency; I10 Essential (primary) hypertension; I51.7 Cardiomegaly; F17.210 Nicotine dependence, cigarettes, uncomplicated; F41.8 Other specified anxiety disorders; E03.9 Hypothyroidism, unspecified; E78.5 Hyperlipidemia, unspecified; K42.9 Umbilical hernia without obstruction or gangrene; N52.9 Male erectile dysfunction, unspecified; M19.012 Primary osteoarthritis, left shoulder; Z96.642 Presence of left artificial hip joint; Z96.652 Presence of left artificial knee joint
CPT/HCPCS: 36415; 80053; 81001; 82550; 82803; 84439; 84443; 84484; 85025; 87040; 87070; 87077; 87186; 87502; 93005; 93010; 94640; 96361; 96365; 96366; 96375; 96376

== ENCOUNTER 2018-07-22 11:46 | Outpatient (CLI) | END 2018-07-22 11:47 | disposition home or self-care (01) | LOC: LAB 11:46 | DX: I10 Essential (primary) hypertension (principal); J44.9 Chronic obstructive pulmonary disease, unspecified; M06.9 Rheumatoid arthritis, unspecified; Z12.5 Encounter for screening for malignant neoplasm of prostate; Z79.899 Other long term (current) drug therapy | CPT/HCPCS: 36415; 80053; 80061; 84439; 84443; 85025 ==

== ENCOUNTER 2018-09-02 17:15 | Outpatient (CLI) | END 2018-09-02 17:16 | disposition home or self-care (01) | LOC: LAB 17:15 | DX: M06.9 Rheumatoid arthritis, unspecified (principal) | CPT/HCPCS: 36415; 80053; 85025 ==

== ENCOUNTER 2018-11-29 15:28 | Outpatient (CLI) | END 2018-11-29 15:29 | disposition home or self-care (01) | LOC: LAB 15:28 | PROVIDERS: ATTEND Internal Medicine Rheumatology | DX: M06.9 Rheumatoid arthritis, unspecified (principal); Z79.899 Other long term (current) drug therapy | CPT/HCPCS: 36415; 80053; 85025 ==

== ENCOUNTER 2018-12-11 09:17 | Inpatient (IN) ==
[2018-12-11 10:04] VITALS: BMI 36.6
[2018-12-11] MEDS ORDERED: XOPENEX 0.63 MG NEB PRN (10:56)
[2018-12-11] MEDS: ZITHROMAX PO SCH (11:53)
[2018-12-11] MEDS: SOLU-CORTEF 250 MG IVP SCH ×3 (11:55→21:33)
[2018-12-11] MEDS: SODIUM CHLORIDE 1,000 ML IV SCH (11:55)
[2018-12-11] MEDS: ROCEPHIN 1 GM in SODIUM CHLORIDE 50 ML IV SCH (11:55)
[2018-12-11] MEDS ORDERED: TYLENOL PO STA (12:16)
[2018-12-11] MEDS ORDERED: SYNTHROID PO SCH (12:20)
--- NOTE | 2018-12-11 13:34 | DI ---
EXAM: Two views of the chest. History: Short of breath comparison: Chest radiograph 09/26/2017 Findings: Heart is mildly enlarged. Mild right basilar infiltrate. No appreciable pleural fluid an d no pneumothorax. No acute osseous abnormalities. Impression: 1. Mild right basilar infiltrate. 2. Mild cardiomegaly
[2018-12-11] MEDS: HYDROCHLOROTHIAZIDE PO SCH (13:47)
[2018-12-11] MEDS: COZAAR PO SCH (13:47)
[2018-12-11] MEDS ORDERED: XOPENEX 0.63 MG NEB SCH (14:00)
[2018-12-11] MEDS ORDERED: COREG PO SCH ×3 (14:30→17:30)
[2018-12-11] MEDS: XOPENEX 1.25 MG NEB SCH ×2 (14:39→23:55)
[2018-12-11] MEDS: PROAIR HFA IH SCH ×3 (15:17→21:37)
[2018-12-11] MEDS: SYNTHROID PO SCH (15:17)
[2018-12-11] MEDS: FOLIC ACID PO SCH (15:18)
[2018-12-11] MEDS: K-DUR PO SCH (15:18)
[2018-12-11] MEDS: AZULFIDINE PO SCH (15:18)
[2018-12-11] MEDS: NICODERM 14 MG TD SCH (15:19)
[2018-12-11] MEDS ORDERED: TYLENOL PO PRN (15:56)
[2018-12-11] MEDS ORDERED: NITROSTAT SL PRN (15:56)
[2018-12-11] MEDS ORDERED: VISTARIL INJ IM PRN (15:56)
[2018-12-11] MEDS ORDERED: ATROPINE SULFATE PFS IVP PRN (15:56)
[2018-12-11] MEDS: COREG PO SCH (17:31)
[2018-12-11] MEDS ORDERED: NON-FORMULARY MEDICATION (Sertraline Hcl [Zoloft] 100 MG) PO SCH (20:00)
[2018-12-11] MEDS: ATIVAN PO SCH (21:29)
[2018-12-11] MEDS: CYMBALTA PO SCH (21:29)
[2018-12-11] MEDS: PRAVACHOL PO SCH (21:29)
[2018-12-11] MEDS: SEROQUEL PO SCH (21:30)
[2018-12-11] MEDS: ZOLOFT PO SCH (21:30)
[2018-12-11] MEDS: DESYREL PO SCH (21:31)
[2018-12-12] MEDS: XOPENEX 1.25 MG NEB SCH ×3 (04:38→22:00)
[2018-12-12] MEDS: SYNTHROID PO SCH (05:52)
[2018-12-12] MEDS: SOLU-CORTEF 250 MG IVP SCH ×3 (05:52→20:22)
[2018-12-12] MEDS: ROCEPHIN 1 GM in SODIUM CHLORIDE 50 ML IV SCH (08:33)
[2018-12-12] MEDS: PROAIR HFA IH SCH ×4 (08:33→20:21)
[2018-12-12] MEDS: FOLIC ACID PO SCH (08:34)
[2018-12-12] MEDS: COZAAR PO SCH (08:34)
[2018-12-12] MEDS: COREG PO SCH ×2 (08:34→16:32)
[2018-12-12] MEDS: ASPIRIN EC PO SCH (08:34)
[2018-12-12] MEDS: AZULFIDINE PO SCH (08:34)
[2018-12-12] MEDS: K-DUR PO SCH (08:34)
[2018-12-12] MEDS: HYDROCHLOROTHIAZIDE PO SCH (08:34)
[2018-12-12] MEDS: ZITHROMAX PO SCH (08:35)
[2018-12-12] MEDS: PHENERGAN WITH CODEINE 6.25/10 MG/5 ML PO PRN ×2 (08:36→16:32)
[2018-12-12] MEDS ORDERED: RHEUMATREX PO SCH ×2 (09:00)
[2018-12-12] MEDS ORDERED: NON-FORMULARY MEDICATION (Etanercept [Enbrel] 50 MG) SQ SCH ×2 (09:00→21:00)
[2018-12-12] MEDS ORDERED: NON-FORMULARY MEDICATION (Etanercept [Enbrel] 25 MG) SQ SCH (09:00)
--- NOTE | 2018-12-12 09:55 | PCM.PROG ---
Attending Provider: ATTENDING PROVIDER: Dr. SAIMA RAYGOZA This patient is seen with Angelica Serna, Nurse Practitioner. DATE OF SERVICE: 12/12/18 SUBJECTIVE: This 48 year old WHITE/ M was hospitalized 12/11/18. The patient is resting comfortably. He slept well through the night. Chest x-ray showed pneumonia. He has pleuritic pain with cough. He has shortness of breath requiring oxygen via nasal cannula. Eating well. REVIEW OF SYSTEMS: CONSTITUTIONAL: No night sweats. Fatigue. No fever or chills. HEENT: Eyes: No visual changes. No eye pain. No eye discharge. ENT: No runny nose. No epistaxis. No sinus pain. No odynophagia. No congestion. RESPIRATORY: Cough, no congestion. No hemoptysis. No shortness of breath. CARDIOVASCULAR: No angina symptoms. No CHF symptoms. No atypical chest pain for CAD. No palpitations. No orthopnea.. GASTROINTESTINAL: No abdominal pain. No nausea or vomiting. No diarrhea or constipation. No hematemesis. No hematochezia. GENITOURINARY: No urgency. No frequency. No dysuria. No hematuria. No obstructive symptoms. No discharge. No pain. No significant abnormal bleeding. MUSCULOSKELETAL: No musculoskeletal pain; no joint swelling. NEUROLOGICAL: Awake, alert, oriented to time, place and person. No headache. No neck pain. No syncope. No seizures. No dizziness. PSYCHIATRIC: Not anxious. No depression. No suicidal thoughts. No homicidal thoughts. SKIN: No rash. No lesions. No wounds. ENDOCRINE: No unexplained weight loss. No weight gain. HEMATOLOGIC/LYMPHATIC: No anemia. No purpura. No petechiae. No prolonged or excessive bleeding. No palpable lymph nodes. PHYSICAL EXAMINATION: GENERAL: The patient is awake, alert and oriented, lying in bed in no distress. VITAL SIGNS: Temperature 97.6 F, Pulse 48, Respiratory Rate 16, BP 125/76, Pulse Ox 95% HEENT: Head normocephalic, atraumatic. Eyes: Extraocular muscles are intact. Pupils are equal, round and reactive to light and accommodation. Ears: No lesions. Nose appeared normal. Throat: No exudate or erythema. NECK: Supple. No JVD, no carotid bruit. No lymphadenopathy or thyromegaly. LUNGS: Diminished breath sounds. Bilateral rales. Clear to auscultation. Percussion note normal. Chest symmetrical. HEART: S1, S2, no S3. No murmurs. No cyanosis or clubbing. No ascites. Pulses: Dorsalis pedis and posterior tibial pulses +1 to +2 both sides. ABDOMEN: Soft. Non-tender. Bowel sounds active. No CVA tenderness. No mass felt. EXTREMITIES: No edema. Full range of motion of all extremities, equal. NEUROLOGIC: No focal deficit. Cranial nerves II through XII are grossly intact. No headache, no double vision or headache. SKIN: Not dry. Intact. Turgor-normal. LYMPHATIC: No palpable lymph nodes/no lymphedema. MUSCULOSKELETAL: Normal joints with no swelling. Muscle tone is normal. LAB REVIEW: 12/12/18 05:00 12/12/18 05:00 12/12/18 05:00: Sodium 137.2, Potassium 3.84, Chloride 104.1, Carbon Dioxide 23.7, Anion Gap 13.24, BUN 12.2, Creatinine 0.84, Estimated GFR (MDRD) 98.00, BUN/Creatinine Ratio 14.52, Glucose 126.8 H, Calcium 9.09, Total Bilirubin 0.29 , AST 20.4, ALT 24.1, Alkaline Phosphatase 86.9, Total Protein 6.84, Albumin 4.21, Globulin 2.63, Albumin/Globulin Ratio 1.60 12/12/18 05:00: WBC 12.27 H, RBC 4.75, Hgb 13.4 L, Hct 40.8 L, MCV 85.9, MCH 28.2, MCHC 32.8, RDW Coeff of Martha 14.5, Plt Count 266, Immature Gran % (Auto) 0.6, Neut % (Auto) 80.3, Lymph % (Auto) 13.0, [place] % (Auto) 5.8, Eos % (Auto) 0.2, Baso % (Auto) 0.1, Immature Gran # (Auto) 0.1, Neut # (Auto) 9.9 H, Lymph # (Auto) 1.6, [place] # (Auto) 0.7, Eos # (Auto) 0.0, Baso # (Auto) 0.0 12/11/18 17:48: Urine Color Yellow, Urine Clarity Clear, Urine pH 5.5, Ur Specific Pitman <=1.005, Urine Protein Negative, Urine Glucose (UA) Negative, Urine Ketones Negative, Urine Blood Negative, Urine Nitrite Negative, Urine Bilirubin Negative, Urine Urobilinogen 0.2, Ur Leukocyte Esterase Negative 12/11/18 15:49: Puncture Site Rr, O2 Saturation 95.0, ABG pH 7.369, ABG pCO2 38.2, ABG pO2 80.0 L, ABG HCO3 22.1, ABG Total CO2 23, ABG Base Excess -3 L, Vladimir Test +, FiO2 % 21.0 12/11/18 11:37: Free T4 0.98 12/11/18 11:37: Sodium 135.5, Potassium 4.00, Chloride 99.4, Carbon Dioxide 26.0 , Anion Gap 14.10, BUN 10.9, Creatinine 0.84, Estimated GFR (MDRD) 98.00, BUN/ Creatinine Ratio 12.97, Glucose 97.1, Calcium 9.39, Total Bilirubin 0.61, AST 26.9, ALT 28.8, Alkaline Phosphatase 86.9, Total Protein 7.37, Albumin 4.45, Globulin 2.92, Albumin/Globulin Ratio 1.52, TSH 1.690 12/11/18 11:37: WBC 8.59, RBC 4.79, Hgb 13.7 L, Hct 40.8 L, MCV 85.2, MCH 28.6, MCHC 33.6, RDW Coeff of Martha 14.7, Plt Count 233, Immature Gran % (Auto) 0.5, Neut % (Auto) 65.6, Lymph % (Auto) 20.7, [place] % (Auto) 9.8, Eos % (Auto) 3.1, Baso % (Auto) 0.3, Immature Gran # (Auto) 0.0, Neut # (Auto) 5.6, Lymph # (Auto ) 1.8, [place] # (Auto) 0.8, Eos # (Auto) 0.3, Baso # (Auto) 0.0 ASSESSMENT: Please see below. 1. Right basilar pneumonia 2. Shortness of breath 3. Pleuritic pain 4. Rheumatoid arthritis. PLAN: 1. Continue IV antibiotics 2. Discontinue IV fluids 3. Phenergan with codeine 1-2 tsp Q 6 hours. 4. Discontinue Telemetry Plan and coordination of the patient's care discussed in the presence of Business Administration Professor and nurse. SCRIBED BY: GAMAL MEYER Measurement And Sensing Technician scribed while in presence of service performed by Dr. Raygoza/Angelica Serna APRN on 12/12/18 ([id number])
[2018-12-12] MEDS: NICODERM 14 MG TD SCH (12:08)
--- NOTE | 2018-12-12 13:05 | HP ---
DATE OF SERVICE: 12/11/18 HISTORY OF PRESENT ILLNESS: 48-year-old male with complaint of cough, congestion times one week, green sputum, bloody at times. Pain with coughing and deep breathing, nausea. He had a fever last night, shortness of breath and could not walk dog. No signs or symptoms of CHF or CAD. PAST MEDICAL HISTORY: Hypertension LVH Rheumatoid arthritis/generalized arthritis SANDY PAST SURGICAL HISTORY: Bilateral knees Lymph node in groin Left hip replacement Vasectomy REVIEW OF SYSTEMS: CONSTITUTIONAL: Positive for fever and fatigue. HEENT: Positive for sinus drainage, no sore throat. RESPIRATORY: Positive for cough. No hemoptysis. CARDIOVASCULAR: Positive for pleuritic chest pain. Positive for shortness of breath. No angina, CHF symptoms or palpitations. GASTROINTESTINAL: No melena or abdominal pain. No GERD. GENITOURINARY: Prostatism. No hematuria, no polyuria. CRYSTAL FLAT GRINDER: No blackout, no dizziness, no headache, no double vision. MUSCULOSKELETAL: No osteoarthritis pain, no joint swelling. ENDOCRINE: No weight loss, no weight gain. SKIN: Not dry, no rash. PSYCHIATRIC: Not anxious, no depression, no suicidal thoughts, no homicidal thoughts. SOCIAL HISTORY: The patient is ; has five children. He works part-time at [employer]. No drug use history. Smokes 1/2 pack per day for 30 years. No alcohol use. FAMILY HISTORY: Father and mother . No brothers. Two sisters. MEDICATIONS: (HOME) Methotrexate 2.5 mg tablet, 8 tab p.o. weekly Enbrel 50 mg SQ weekly Folic Acid daily 1 mg p.o. daily Hyzaar 100/12.5 mg daily Levothyroxine 75 mcg Coreg 12.5 mg b.i.d. Ativan 0.5 mg one h.s. Zoloft 100 mg daily Pravachol 40 mg daily Trazodone 75 mg p.o. at h.s. Cymbalta 30 mg daily Sulfasalazine 500 mg p.o. daily Carvedilol 12.5 mg p.o. b.i.d. Seroquel 25 mg one tab h.s. Potassium Chloride ER 20 mEq (started one week) ALLERGIES: NKDA PHYSICAL EXAMINATION: V/S: Pulse 70, BP 138/90, temperature 98.2, 02 sat 95%, weight 245.0 lbs, height 5'8", BMI 37.2. GENERAL APPEARANCE: Oriented times three. HEENT: Yellow green sputum. NECK: No JVP, no bruits. RESPIRATORY: Lungs - rales left upper lobe, expiratory wheeze bilaterally. CARDIOVASCULAR: S1, S2, no S3, no murmurs. No cyanosis, clubbing. No ascites. GI/ABDOMEN: No tenderness. Bowel sounds are active. EXTREMITIES: No edema, pulses +1, equal. CRYSTAL FLAT GRINDER: Deep tendon reflexes, sensory, motor and gait all normal. RECTAL/PROSTATE: Prostate 07/09 (0.6). Colonoscopy refused. ASSESSMENT: 1. ACUTE PNEUMONITIS 2. PLEURITIC PAIN 3. SHORTNESS OF BREATH 4. UMBILICAL HERNIA 5. GENERALIZED ARTHRITIS/STIFFNESS 6. SANDY 7. BILATERAL KNEE SCOPE 8. HYPERTENSION/LVH 9. RHEUMATOID ARTHRITIS 10. SMOKING/COPD 11. LEFT HIP REPLACEMENT 12. PROSTATISM ED 13 HYPOGONADISM 14. INSOMNIA PLAN: 1. Admit with routine telemetry orders. No cardiac markers. 2. Rocephin 1 gm IV daily. 3. Zithromax 500 mg p.o. daily times three days. 4. Xopenex nebs q.8hr scheduled. 5. Solu-Cortef 125 mg IV q.8hr 6. NS IV @ 75 cc/hr. 7. 02 @ 1-2L NC 8. Chest x-ray. 9. CBC, CMP today and daily. 10. Regular diet. 11. T4/TSH. 12. Continue home medications. 13. ABG on room air. 14. Nicotine patch TD q.24hr. TIME SPENT: More than 70 minutes. MTDD
[2018-12-12] MEDS: SODIUM CHLORIDE 1,000 ML IV SCH (16:57)
[2018-12-12] MEDS ORDERED: NON-FORMULARY MEDICATION (Losartan/Hydrochlorothiazide [Hyzaar 100-12.5 Tablet] 1 EACH) PO SCH (20:00)
[2018-12-12] MEDS: ZOLOFT PO SCH (20:24)
[2018-12-12] MEDS: ATIVAN PO SCH (20:24)
[2018-12-12] MEDS: PRAVACHOL PO SCH (20:25)
[2018-12-12] MEDS: SEROQUEL PO SCH (20:25)
[2018-12-12] MEDS: CYMBALTA PO SCH (20:25)
[2018-12-12] MEDS: DESYREL PO SCH (20:27)
[2018-12-13] MEDS: XOPENEX 1.25 MG NEB SCH (04:56)
[2018-12-13 05:49] VITALS: BP 124/75; TEMP 97.7
[2018-12-13] MEDS: SYNTHROID PO SCH (05:52)
[2018-12-13] MEDS: SOLU-CORTEF 250 MG IVP SCH ×2 (05:52→13:01)
--- NOTE | 2018-12-13 08:56 | DI ---
EXAM: Two views of the chest. History: Cough, short of breath Comparison: Chest radiograph 12/11/2018 Findings: Heart is enlarged. No focal consolidation. No appreciable pleural fluid and no pneumotho rax. No acute osseous abnormalities. Impression: Cardiomegaly without evidence for pulmonary edema. No focal pneumonia
[2018-12-13] MEDS: PHENERGAN WITH CODEINE 6.25/10 MG/5 ML PO PRN (09:33)
[2018-12-13] MEDS: ROCEPHIN 1 GM in SODIUM CHLORIDE 50 ML IV SCH (09:33)
[2018-12-13] MEDS: HYDROCHLOROTHIAZIDE PO SCH (09:34)
[2018-12-13] MEDS: FOLIC ACID PO SCH (09:34)
[2018-12-13] MEDS: K-DUR PO SCH (09:34)
[2018-12-13] MEDS: ASPIRIN EC PO SCH (09:34)
[2018-12-13] MEDS: COZAAR PO SCH (09:34)
[2018-12-13] MEDS: PROAIR HFA IH SCH (09:34)
[2018-12-13] MEDS: ZITHROMAX PO SCH (09:35)
[2018-12-13] MEDS: AZULFIDINE PO SCH (09:35)
[2018-12-13] MEDS: COREG PO SCH (09:35)
--- NOTE | 2018-12-13 10:01 | ECHO2D ---
Date of Exam: 12/12/2018 Ordering Physician: DR. RAYGOZA Room #: 118 Reason for Echo: CARDIOMEGALY M-Mode Normal Adult Results LV Dimensions Normal Adult Results AoV Opening excursions >1.6 >1.6 LVEDD-base- 3.5-5.8 4.4 Ao root dimensions 2.0-3.7 3.6 LVESD-base- 3.1-4.6 L. Atrium dimensions 1.9-3.8 4.4 Post. Wall thickness 0.8-1.1 1.6 IV septum (thickness) 0.7-1.2 1.9 Post. Wall excursion 0.72-1.3 NORMAL Septal motion NORMAL Systolic motion R. Ventricular cavity 1.5-2.0 NORMAL LVEF 60% 63% Paradoxical septal wall motion NORMAL 2-D : ENLARGED LEFT ATRIAL CAVITY OTHERWISE NORMAL 2-D M Mode Echocardiogram was performed using apical four chamber and left parasternal long and short axis views. Mitral, tricuspid and aortic valves appear to be normal. Contractility of the left ventricle seems to be normal, so is the cavity size. Enlarged left atrial cavity size. Aortic root appears to be normal. There is no pericardial effusion. There is no thrombus noted in the left ventricular or left aortic cavity. No mitral valve prolapse noted. M-MODE: MV: NORMAL AV: NORMAL TV: NORMAL PV: CHAMBER SIZE: ENLARGED LEFT ATRIAL CAVITY WALL MOTION: NORMAL PERICARDIUM: NORMAL INTERPRETATION: 1. MODERATE LEFT VENTRICULAR HYPERTROPHY WITH ENLARGED LEFT ATRIAL CAVITY 2. NORMAL VALVES 3. NORMAL LEFT VENTRICULAR CONTRACTILITY MTDD
--- NOTE | 2018-12-13 11:05 | PCM.PROG ---
Attending Provider: ATTENDING PROVIDER: Dr. SAIMA RAYGOZA This patient is seen with Angelica Serna, Nurse Practitioner. DATE OF SERVICE: 12/13/18 SUBJECTIVE: This 48 year old WHITE/ M was hospitalized 12/11/18. The patient is resting comfortably. Wheezing has significant improved. No shortness of breath. he has been eating well. We will do a repeat chest x-ray with possible discharge today. REVIEW OF SYSTEMS: CONSTITUTIONAL: No night sweats. No fatigue, malaise, lethargy. No fever or chills. HEENT: Eyes: No visual changes. No eye pain. No eye discharge. ENT: No runny nose. No epistaxis. No sinus pain. No odynophagia. No congestion. RESPIRATORY: Cough, no congestion. No hemoptysis. No shortness of breath. CARDIOVASCULAR: No angina symptoms. No CHF symptoms. No atypical chest pain for CAD. No palpitations. No orthopnea.. GASTROINTESTINAL: No abdominal pain. No nausea or vomiting. No diarrhea or constipation. No hematemesis. No hematochezia. GENITOURINARY: No urgency. No frequency. No dysuria. No hematuria. No obstructive symptoms. No discharge. No pain. No significant abnormal bleeding. MUSCULOSKELETAL: No musculoskeletal pain; no joint swelling. NEUROLOGICAL: Awake, alert, oriented to time, place and person. No headache. No neck pain. No syncope. No seizures. No dizziness. PSYCHIATRIC: Not anxious. No depression. No suicidal thoughts. No homicidal thoughts. SKIN: No rash. No lesions. No wounds. ENDOCRINE: No unexplained weight loss. No weight gain. HEMATOLOGIC/LYMPHATIC: No anemia. No purpura. No petechiae. No prolonged or excessive bleeding. No palpable lymph nodes. PHYSICAL EXAMINATION: GENERAL: The patient is awake, alert and oriented, lying in bed in no distress. VITAL SIGNS: Temperature 97.7 F, Pulse 54, Respiratory Rate 18, BP 124/75, Pulse Ox 95% HEENT: Head normocephalic, atraumatic. Eyes: Extraocular muscles are intact. Pupils are equal, round and reactive to light and accommodation. Ears: No lesions. Nose appeared normal. Throat: No exudate or erythema. NECK: Supple. No JVD, no carotid bruit. No lymphadenopathy or thyromegaly. LUNGS: Diminished breath sounds. No wheezing. Clear to auscultation. Percussion note normal. Chest symmetrical. HEART: S1, S2, no S3. No murmurs. No cyanosis or clubbing. No ascites. Pulses: Dorsalis pedis and posterior tibial pulses +1 to +2 both sides. ABDOMEN: Soft. Non-tender. Bowel sounds active. No CVA tenderness. No mass felt. EXTREMITIES: No edema. Full range of motion of all extremities, equal. NEUROLOGIC: No focal deficit. Cranial nerves II through XII are grossly intact. No headache, no double vision or headache. SKIN: Not dry. Intact. Turgor-normal. LYMPHATIC: No palpable lymph nodes/no lymphedema. MUSCULOSKELETAL: Normal joints with no swelling. Muscle tone is normal. LAB REVIEW: 12/13/18 05:00 12/13/18 05:00 12/13/18 05:00: Sodium 137.8, Potassium 3.77, Chloride 103.1, Carbon Dioxide 24.4, Anion Gap 14.07, BUN 13.3, Creatinine 0.76, Estimated GFR (MDRD) 109.00, BUN/Creatinine Ratio 17.50, Glucose 111.4 H, Calcium 9.09, Total Bilirubin 0.30 , AST 18.4, ALT 22.6, Alkaline Phosphatase 74.5, Total Protein 6.86, Albumin 4.14, Globulin 2.72, Albumin/Globulin Ratio 1.52 12/13/18 05:00: WBC 14.88 H, RBC 4.74, Hgb 13.7 L, Hct 41.0 L, MCV 86.5, MCH 28.9, MCHC 33.4, RDW Coeff of Martha 14.8, Plt Count 268, Immature Gran % (Auto) 0.8, Neut % (Auto) 79.4, Lymph % (Auto) 14.0, Sully % (Auto) 5.7, Eos % (Auto) 0.0, Baso % (Auto) 0.1, Immature Gran # (Auto) 0.1, Neut # (Auto) 11.8 H, Lymph # (Auto) 2.1, Sully # (Auto) 0.9, Eos # (Auto) 0.0, Baso # (Auto) 0.0 ASSESSMENT: Please see below. 1. Right basilar pneumonia 2. Pleuritic pain, improved 3. Shortness of breath resolved. PLAN: 1. Repeat chest x-ray with improvement will discharge home 2. Omnicef 300mg twice a day for 7 days 3. Prednisone 10mg twice a day for 5 days. Plan and coordination of the patient's care discussed in the presence of Spikemaking Supervisor and nurse. SCRIBED BY: Vega RAMOS scribed while in presence of service performed by Dr. Raygoza/Angelica Serna APRN on 12/13/18 ([id number])
--- NOTE | 2018-12-13 14:03 | PN ---
DATE OF SERVICE: 12/12/18 SUBJECTIVE: The patient was seen and examined with the nurse practitioner. The patient's condition has steadily improved. His bronchitis is better. He is a smoker for many years. He has pleuritic type of pain which is alot better. He is advised to quit smoking. Counseling for smoking done. Echocardiogram was done which is practically unchanged with LVH and enlarged LA cavity which are normal. Pericardial effusion noted. TIME SPENT: More than 30 minutes. Plan and coordination of the patient's care discussed in the presence of nurse. YAMEL
--- NOTE | 2018-12-13 14:05 | PN ---
BILLING 12/11/18 ADMISSION DAY LEVEL 5 12/12/18 INTERMEDIATE 12/13/18 DISCHARGE MTDD
--- NOTE | 2018-12-13 14:06 | DS ---
DATE OF SERVICE: 12/13/18 FINAL DIAGNOSIS 1.RIGHT BASILAR PNEUMONIA, RESOLVED 2.PLEURITIC PAIN, IMPROVED 3.SOB, RESOLVED 4.HTN/LVH 5.COPD 6.DYSLIPIDEMIA 7.UMBILICAL HERNIA 8.PROSTATISM - ED 9.HYPOGONADISM 10.OSTEOARTHRITIS 11.RHEUMATOID ARTHRITIS 12.DEPRESSION/ANXIETY 13.INSOMNIA 14.LEFT HIP ARTHROPLASTY 15.LEFT KNEE ARTHROPLASTY 16.SMOKER 17.ECHO 12/13/18: MODERATE LVH WITH ENLARGED LEFT ATRIAL CAVITY. NORMAL LEFT VENTRICULAR CONTRACTILITY. NORMAL VALVES. LVEF 63% LAST VITALS: Temp Pulse Resp BP Pulse Ox 97.7 F 54 L 18 124/75 95 12/13/18 05:48 12/13/18 05:48 12/13/18 05:48 12/13/18 05:48 12/13/18 05:48 DISCHARGE INSTRUCTIONS: DISCHARGE HOME TODAY 12/13/18. FOLLOW UP WITH DR. RAYGOZA OR HALINA JON APRN ON SundayDECEMBER 20 AT 1030.CODE STATUS: FULL CODE. TAKE THESE MEDICATIONS AT HOME: Albuterol Sulfate (Proair Hfa) 2 puff IH QID [facility] Carvedilol (Coreg) 12.5 mg PO BIDWM [facility] Duloxetine HCl (Cymbalta) 30 mg PO BEDTIME [facility] Folic Acid (Folic Acid) 1 mg PO DAILY [facility] Hyzaar 100-12.5 mg PO DAILY [facility] Levothyroxine Sodium (Synthroid) 75 mcg PO QDAC [facility] Lorazepam (Ativan) 0.5 mg PO BEDTIME [facility] Losartan Potassium (Cozaar) 100 mg PO DAILY [facility] Methotrexate (Rheumatrex) 20 mg PO Th@0900 [facility] Nicotine (Nicoderm 14 Mg) 1 patch TD Q24H [facility] Etanercept [Enbrel] 50 mg SQ Th@2100 [facility] Potassium Chloride (K-Dur) 20 meq PO DAILYWM [facility] Pravastatin Sodium (Pravachol) 40 mg PO BEDTIME [facility] Promethazine HCl/Codeine (Phenergan With Codeine 6.25/10 Mg/5 Ml) 10 ml PO Q6H PRN Quetiapine Fumarate (Seroquel) 25 mg PO BEDTIME [facility] Sertraline HCl (Zoloft) 100 mg PO BEDTIME [facility] Sulfasalazine (Azulfidine) 500 mg PO DAILY [facility] Trazodone HCl (Desyrel) 75 mg PO BEDTIME [facility] ALLERGIES: No Known Allergies Allergy (Unverified 08/14/16 10:56) DISCONTINUED MEDICATIONS: NONE NEW PRESCRIPTIONS: OMNICEF 300 mg PO Q12HR TAKE ONE CAPSULE BY MOUTH EVERY 12 HOURS PHENERGAN WITH CODEINE 6.25/10 mg/5 ml TAKE 2 TEASPOONS BY MOUTH Q6H NEEDED FOR COUGH PREDNISONE 10 mg PO BIDWM TAKE ONE TABLET BY MOUTH TWICE A DAY WITH MEALS SMOKING: EVERYDAY SMOKER DISEASE SPECIFIC EDUCATION: PNEUMONIA MEDICATIONS SMOKING CESSATION FOLLOW UP APPOINTMENT DIET: REGULAR ACTIVITY: TOLERATED HOSPITAL COURSE: This is a 48 year old white male who is a direct admit from out office. He had had cough and congestion for the past 4-5 days, he was short of breath and had pain within inspiration and was coughing. He was admitted and was found to have right basilar pneumonia. He was placed on Rocephin 1 gram IV daily along with Zithromax 500mg PO daily for three days. He was started on Xopenex NEB treatments. Initially he was running low grade fever and short of breath, after starting IV Solu-Cortef as well as the Rocephin today repeat chest x-ray shows resolution of the pneumonia. HIs pleuritic pain is still present but significantly improved. He is no longer short of breath requiring oxygen. He will be discharged home on Omnicef 300mg twice a day for the next 7 days along with Prednisone 10mg twice a day for 5 days. He is a smoker and he has been instructed to quit smoking, stay inside out of the heat for the next several days and continue with increased fluids and rest. We will followup with him next week. TIME SPENT: More than 60 minutes. YAMEL
--- NOTE | 2018-12-13 14:33 | PN ---
DATE OF SERVICE: 12/13/18 SUBJECTIVE: The patient was seen and examined with the nurse practitioner. Bronchitis is improving. He is on Omnicef and Prednisone. The patient will be discharged home. Cardiovascular status is stable. The patient is strongly advised to lose weight. Advised to quit smoking. TIME SPENT: More than 30 minutes. Plan and coordination of the patient's care discussed in the presence of nurse. YAMEL
--- NOTE | 2018-12-13 15:33 | CM.DICTOOL ---
ADMISSION: 12/11/18 09:17 DISCHARGE: DECEMBER 13, 2018 DATE OF SERVICE: 12/13/18 FINAL DIAGNOSIS RIGHT BASILAR PNEUMONIA, RESOLVED PLEURITIC PAIN, IMPROVED SOB, RESOLVED HTN/LVH COPD DYSLIPIDEMIA UMBILICAL HERNIA PROSTATISM - ED HYPOGONADISM OSTEOARTHRITIS RHEUMATOID ARTHRITIS DEPRESSION/ANXIETY INSOMNIA LEFT HIP ARTHROPLASTY LEFT KNEE ARTHROPLASTY SMOKER ECHO 12/13/18: MODERATE LVH WITH ENLARGED LEFT ATRIAL CAVITY. NORMAL LEFT VENTRICULAR CONTRACTILITY. NORMAL VALVES. LVEF 63% LAST VITALS Temp Pulse Resp BP Pulse Ox 97.7 F 54 L 18 124/75 95 12/13/18 05:48 12/13/18 05:48 12/13/18 05:48 12/13/18 05:48 12/13/18 05:48 TAKE THESE MEDICATIONS AT HOME Albuterol Sulfate (Proair Hfa) 2 puff IH QID [facility] Last Admin: 12/13/18 09:34 Dose: 2 puff Carvedilol (Coreg) 12.5 mg PO BIDWM [facility] Last Admin: 12/13/18 09:35 Dose: 12.5 mg Duloxetine HCl (Cymbalta) 30 mg PO BEDTIME [facility] Last Admin: 12/12/18 20:25 Dose: 30 mg Folic Acid (Folic Acid) 1 mg PO DAILY [facility] Last Admin: 12/13/18 09:34 Dose: 1 mg Hyzaar 100-12.5 mg PO DAILY [facility] Last Admin: 12/13/2018 Levothyroxine Sodium (Synthroid) 75 mcg PO QDAC [facility] Last Admin: 12/13/18 05:52 Dose: 75 mcg Lorazepam (Ativan) 0.5 mg PO BEDTIME [facility] Last Admin: 12/12/18 20:24 Dose: 0.5 mg Losartan Potassium (Cozaar) 100 mg PO DAILY [facility] Last Admin: 12/13/18 09:34 Dose: 100 mg Methotrexate (Rheumatrex) 20 mg PO Th@0900 [facility] Last Admin: 12/12/18 08:35 Dose: 20 mg Nicotine (Nicoderm 14 Mg) 1 patch TD Q24H [facility] Last Admin: 12/12/18 12:08 Dose: 1 patch Etanercept [Enbrel] 50 mg SQ Th@2100 [facility] Last Admin: 12/12/18 20:20 Dose: 50 mg Potassium Chloride (K-Dur) 20 meq PO DAILYWM [facility] Last Admin: 12/13/18 09:34 Dose: 20 meq Pravastatin Sodium (Pravachol) 40 mg PO BEDTIME [facility] Last Admin: 12/12/18 20:25 Dose: 40 mg Promethazine HCl/Codeine (Phenergan With Codeine 6.25/10 Mg/5 Ml) 10 ml PO Q6H PRN PRN Reason: Cough Last Admin: 12/13/18 09:33 Dose: 10 ml Quetiapine Fumarate (Seroquel) 25 mg PO BEDTIME [facility] Last Admin: 12/12/18 20:25 Dose: 25 mg Sertraline HCl (Zoloft) 100 mg PO BEDTIME [facility] Last Admin: 12/12/18 20:24 Dose: 100 mg Sulfasalazine (Azulfidine) 500 mg PO DAILY [facility] Last Admin: 12/13/18 09:35 Dose: 500 mg Trazodone HCl (Desyrel) 75 mg PO BEDTIME [facility] Last Admin: 12/12/18 20:27 Dose: 75 mg ALLERGIES No Known Allergies Allergy (Unverified 08/14/16 10:56) DISCONTINUED MEDICATIONS NONE NEW PRESCRIPTIONS: OMNICEF 300 mg PO Q12HR TAKE ONE CAPSULE BY MOUTH EVERY 12 HOURS PHENERGAN WITH CODEINE 6.25/10 mg/5 ml TAKE 2 TEASPOONS BY MOUTH Q6H NEEDED FOR COUGH PREDNISONE 10 mg PO BIDWM TAKE ONE TABLET BY MOUTH TWICE A DAY WITH MEALS SMOKING: EVERYDAY SMOKER DISEASE SPECIFIC EDUCATION: PNEUMONIA MEDICATIONS SMOKING CESSATION FOLLOW UP APPOINTMENT LAB REVIEW: 12/13/18 05:00 12/13/18 05:00 12/13/18 05:00: Sodium 137.8, Potassium 3.77, Chloride 103.1, Carbon Dioxide 24.4, Anion Gap 14.07, BUN 13.3, Creatinine 0.76, Estimated GFR (MDRD) 109.00, BUN/Creatinine Ratio 17.50, Glucose 111.4 H, Calcium 9.09, Total Bilirubin 0.30 , AST 18.4, ALT 22.6, Alkaline Phosphatase 74.5, Total Protein 6.86, Albumin 4.14, Globulin 2.72, Albumin/Globulin Ratio 1.52 12/13/18 05:00: WBC 14.88 H, RBC 4.74, Hgb 13.7 L, Hct 41.0 L, MCV 86.5, MCH 28.9, MCHC 33.4, RDW Coeff of Martha 14.8, Plt Count 268, Immature Gran % (Auto) 0.8, Neut % (Auto) 79.4, Lymph % (Auto) 14.0, Crisp % (Auto) 5.7, Eos % (Auto) 0.0, Baso % (Auto) 0.1, Immature Gran # (Auto) 0.1, Neut # (Auto) 11.8 H, Lymph # (Auto) 2.1, Crisp # (Auto) 0.9, Eos # (Auto) 0.0, Baso # (Auto) 0.0 PLAN: DISCHARGE HOME TODAY 12/13/18 DIET: REGULAR ACTIVITY: TOLERATED FOLLOW UP WITH DR. QUINN OR HALINA JON APRN ON SundayDECEMBER 20 AT 1030. CODE STATUS: FULL CODE ALERT, ORIENTED TIMES THREE. MR. WOODARD IS AGREEABLE WITH DISCHARGE HOME TODAY. HE IS INDEPENDENT WITH ALL ACTIVITIES OF DAILY LIVING. DOES NOT REQUIRE ASSISTIVE DEVICE FOR AMBULATION. APPETITE HAS BEEN GOOD WITH MEAL INTAKE 100%. HYDRATION STATUS IS ADEQUATE. SKIN IS INTACT. CONTINUES TO HAVE RIB PAIN WITH COUGHING AND DEEP BREATHING, BUT STATES IT HAS IMPROVED SINCE ADMISSION. Andrew Quinn M.D. Halina Jon APRN
[2018-12-18] MEDS ORDERED: RHEUMATREX PO SCH (09:00)
== END 2018-12-13 12:22 | disposition home or self-care (01) | DRG 195 ==
LOC: MEDSURG B 09:17
PROVIDERS: ADMIT Internal Medicine; ATTEND Internal Medicine
DX: J18.9 Pneumonia, unspecified organism (principal); J44.9 Chronic obstructive pulmonary disease, unspecified; K42.9 Umbilical hernia without obstruction or gangrene; M19.90 Unspecified osteoarthritis, unspecified site; M06.9 Rheumatoid arthritis, unspecified; F41.1 Generalized anxiety disorder; I10 Essential (primary) hypertension; G47.00 Insomnia, unspecified; R06.02 Shortness of breath; R11.0 Nausea; R07.81 Pleurodynia
CPT/HCPCS: 36415; 80053; 81001; 82803; 84439; 84443; 85025; 93005; 93010; 94640